=== PATIENT | male | born 1950 | race Caucasian/White ===

== ENCOUNTER 2024-08-16 18:30 | Emergency (ER) | payer MEDICARE, OTHER ==
[~2024-08-16] VITALS: Ht 170.2 cm; Wt 90.0 kg
[2024-08-16 18:32] VITALS: O2SAT 96
[2024-08-16 19:07] VITALS: BP 135/98; PULSE 120; RESP 16; TEMP 37.2; O2SAT 99
[2024-08-16 19:47] LABS: HEMATOCRIT. 41.9 % (42.0-52.0); HEMOGLOBIN. 14.2 g/dL (14.0-18.0); MEAN CORPUSCULAR HGB CONC 33.9 g/dL (31.0-37.0); MEAN CORPUSCULAR VOLUME 97.3 fL (80.0-94.0); MEAN PLATELET VOLUME 8.3 fl (7.4-10.4); PLATELET 186 x1000/uL (130-400); RED BLOOD CELL COUNT 4.31 mill/uL (4.7-6.1); RED CELL DISTRIBUTION WIDTH 13.1 % (11.6-14.6); WHITE BLOOD COUNT 8.3 x1000/uL (4.5-11.0)
[2024-08-16 19:51] LABS: DIFFERENTIAL COMMENT 1
[2024-08-16 20:02] LABS: CARBON DIOXIDE 28 mEq/L (21-32)
[2024-08-16 20:03] LABS: CALCIUM 10.2 mg/dL (8.7-10.4); CHLORIDE 100 mEq/L (98-107); POTASSIUM 3.9 mEq/L (3.5-5.1); SODIUM 140 mEq/L (136-145)
[2024-08-16 20:06] LABS: PLATELET ESTIMATE NORMAL
[2024-08-16 20:08] LABS: CREATININE 1.1 mg/dL (0.6-1.3); GLUCOSE 194 mg/dL (70-105); UREA NITROGEN BLOOD 12 mg/dL (9-23)
[2024-08-16 20:09] LABS: ALANINE AMINOTRANSFERASE 184 IU/L (10-49)
[2024-08-16 20:10] LABS: ALBUMIN 4.4 g/dL (3.2-4.8); ASPARTATE AMINOTRANSFERASE 429 IU/L (<34); BILIRUBIN DIRECT 1.3 mg/dL (<=3.0); BILIRUBIN TOTAL 2.4 mg/dL (0.1-1.0); PROTEIN TOTAL 7.5 g/dL (6.0-8.3)
[2024-08-16] MEDS: FAMOTIDINE 20MG TABLET PO ONE (20:11)
[2024-08-16] MEDS: MAGNESIUM/ALUMINUM HYDROXIDE/SIMETHICONE 30ML UDC PO ONE (20:11)
[2024-08-16] MEDS: ONDANSETRON 4MG ODT PO ONE (20:12)
[2024-08-16 20:26] LABS: TROPONIN I HIGH SENSITIVITY < 4 ng/L (3.0-53)
== END 2024-08-16 20:41 | disposition left against medical advice (07) ==
LOC: ER 18:30
DX: R10.13 Epigastric pain (principal)
CPT/HCPCS: 80076; 80048; 83690; 85025; 84484; 36415; 71045; 99284; Q0162